=== PATIENT | female | born 1990 | race Caucasian/White ===

== ENCOUNTER → 2023-12-28 | Outpatient (CLI) | payer OTHER ==
--- NOTE | 2023-12-28 21:10 | US ---
EXAMINATION TYPE: US thyroid st tissue head/neck DATE OF EXAM: 12/28/2023 COMPARISON: US 2016 CLINICAL INDICATION: Female, 33 years old with history of E04.1 NONTOXIC SINGLE THYROID NODULE; GLAND SIZE: Right Lobe: 5.7 x 1.7 x 2.0 cm Overall Parenchyma: heterogeneous Left Lobe: 5.2 x 1.5 x 2.0 cm Overall Parenchyma: heterogeneous Isthmus Thickness: 0.4 cm NODULES RIGHT: # of nodules measured on right: 1 1. 0.6 X 0.4 x 0.5 cm, upper lateral, cystic or almost completely cystic, hypoechoic nodule, which is wider than tall, with smooth margins, with echogenic foci. Prior size: 0.3 x 0.2 x 0.3 cm LEFT: # of nodules measured on left: 0 ISTHMUS: # of nodules measured in the isthmus: 0 Bilateral neck scanned, no evidence of lymphadenopathy. IMPRESSION: Subcentimeter nodule right lobe thyroid does not appear suspicious.
== END | disposition home or self-care (01) ==
LOC: RADUSWWP 09:04
PROVIDERS: ATTEND Internal Medicine
DX: E04.1 Nontoxic single thyroid nodule (principal)
CPT/HCPCS: 76536